=== PATIENT | female | born 1960 ===

== ENCOUNTER 2016-10-12 12:45 | Emergency (ER) | payer OTHER ==
[2016-10-12 13:01] VITALS: BP 117/75; PULSE 74; RESP 17; TEMP 98.4; O2SAT 96; BMI 31.4
--- NOTE | 2016-10-12 13:07 | C.PDOC ---
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 Adds that she went to see her pmd to get a tetanus shot, but her pmd had run out prompting ER visit. Denies any pain, redness, swelling, discharge, decrease in ROM. Has no other complaints. Time Seen by Provider: 10/12/16 12:59 Chief Complaint (Nursing): Abnormal Skin Integrity History Per: Patient History/Exam Limitations: no limitations Current Symptoms Are (Timing): Gone Location Of Injury: Right: Hand (R 5th digit) Severity: None Pain Scale Rating Of: 0 Past Medical History Vital Signs: Last Vital Signs Temp 98.4 F 10/12/16 12:55 Pulse 74 10/12/16 12:55 Resp 17 10/12/16 12:55 BP 117/75 10/12/16 12:55 Pulse Ox 96 10/12/16 13:08 - Medical History PMH: Asthma Surgical History: No Surg Hx Family History: States: No Known Family Hx Review Of Systems Constitutional: Negative for: Fever, Chills, Sweats, Weakness Musculoskeletal: Negative for: Neck Pain, Arm Pain, Back Pain Skin: Positive for: Other (laceration to the R 5th digit). Negative for: Rash, Lesions Physical Exam - Physical Exam Appears: Well, Non-toxic, No Acute Distress Skin: Normal Color, Warm, Dry, No Rash Extremity: Normal ROM, No Tenderness, No Deformity, No Swelling, Other (+ healing 1 cm V shaped laceration to the distal tip of the R 5th digit with no erythema, no edema, no discharge, distal sensation intact, normal cap refill) Extremity: Bilateral: Normal Color And Temperature, Normal ROM Pulses: Right Radial: Normal ED Course And Treatment O2 Sat by Pulse Oximetry: 96 Medical Decision Making Medical Decision Makin yo F presents to the ER for wound check to the R 5th digit and needs a tetanus shot. On exam, well healing laceration with no signs of infection. TDap IM given. Clean dressing applied. Advised to f/u with pmd. Return to the ER at any time for any new or worsening symptoms. 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
[2016-10-12] MEDS ORDERED: Bacitracin 500 Units/gm Oint Foilpak UD ONE (13:14)
== END 2016-10-12 13:20 | disposition home or self-care (01) ==
LOC: C.ER 12:45
DX: Z23 Encounter for immunization (principal)

== ENCOUNTER 2017-03-15 10:18 | Emergency (ER) | payer OTHER ==
[2017-03-15 10:19] VITALS: BMI 31.4
[2017-03-15 10:38] VITALS: O2SAT 97
--- NOTE | 2017-03-15 12:03 | C.PDOC ---
History Of Present Illness 57 year old female presents to the ED for evaluation of right wrist, right knee , and lower back pain after she fell approx 1 week ago. Patient states she was in [place] when she fell forward onto her outstretched right hand and knee. Patient denies head injury/LOC, neck pain, visual change, dizziness, nausea, vomiting, extremity weakness, sensory changes. Time Seen by Provider: 03/15/17 10:41 Chief Complaint (Nursing): Lower Extremity Problem/Injury History Per: Patient History/Exam Limitations: no limitations Onset/Duration Of Symptoms: Days (1 week ) Current Symptoms Are (Timing): Still Present Additional History Per: Patient - Knee Description Of Injury: Fell Past Medical History Reviewed: Historical Data, Nursing Documentation, Vital Signs Vital Signs: Last Vital Signs Temp 97.9 F 03/15/17 12:40 Pulse 67 03/15/17 12:40 Resp 20 03/15/17 12:40 BP 102/70 03/15/17 12:40 Pulse Ox 97 03/15/17 18:53 - Medical History PMH: Asthma, Gastritis Surgical History: No Surg Hx Family History: States: No Known Family Hx - Social History Hx Alcohol Use: No Hx Substance Use: No - Immunization History Hx Tetanus Toxoid Vaccination: No Hx Influenza Vaccination: No Review Of Systems Except As Marked, All Systems Reviewed And Found Negative. Eyes: Negative for: Vision Change Cardiovascular: Negative for: Chest Pain Respiratory: Negative for: Shortness of Breath Gastrointestinal: Negative for: Nausea, Vomiting, Abdominal Pain Musculoskeletal: Positive for: Back Pain (lower ), Other (right wrist, right knee pain ) Neurological: Negative for: Weakness, Numbness, Altered Mental Status, Headache , Dizziness, Other (head injury/LOC ) Physical Exam - Physical Exam Appears: Well, Non-toxic, No Acute Distress Skin: Warm, Dry, Ecchymosis (right knee ) Head: Atraumatic, Normacephalic, No Swelling, No Abrasion, No Laceration Eye(s): bilateral: Normal Inspection, PERRL, EOMI Oral Mucosa: Moist Neck: Normal, Normal ROM, No Midline Cervical Tenderness, No Paracervical Tenderness, No Step Off Deformity, Supple Chest: Symmetrical, No Deformity, No Tenderness Cardiovascular: Rhythm Regular, No Murmur Respiratory: Normal Breath Sounds, No Rales, No Rhonchi, No Wheezing Gastrointestinal/Abdominal: Normal Exam, Bowel Sounds, Soft, No Tenderness Back: No CVA Tenderness, Vertebral Tenderness (lumbar ), No Paraspinal Tenderness Extremity: Normal ROM, Tenderness (mild TTP at tight wrist and right knee, diffuse, without erythema/deformity or swelling ), Capillary Refill (< 2 sec all digits ), No Deformity, No Swelling Pulses: Right Radial: Normal Neurological/Psych: Oriented x3, Normal Speech, Normal Cognition, Normal Cranial Nerves, No Cerebellar Signs, Normal Motor, Normal Sensation Gait: Steady ED Course And Treatment O2 Sat by Pulse Oximetry: 97 (on RA) Pulse Ox Interpretation: Normal - Other Rad right wrist XR X-Ray: Interpreted by Me, Viewed By Me, Read By Radiologist Interpretation: PROCEDURE: Right Wrist Radiographs. . HISTORY: right wrist pain after fall. COMPARISON: None. FINDINGS: BONES: No acute fracture or destructive bony lesion identified. JOINTS: Normal. No dislocation. SOFT TISSUES: Normal. OTHER FINDINGS: None. IMPRESSION: Unremarkable right wrist radiographs. lumbar spine XR X-Ray: Interpreted by Me, Viewed By Me, Read By Radiologist Interpretation: PROCEDURE: Radiographs of the Lumbar Spine. HISTORY: low back pain after fall. COMPARISON: No prior. FINDINGS: BONES: Normal alignment. No listhesis. No fracture. DISC SPACES: Mild disc height loss at L5 -S1 indicates limited degenerative disease. Limited spondylosis appreciate the inferior thoracic spine as well as the thoracolumbar junction. OTHER FINDINGS: None. IMPRESSION: Limited degenerative disease. No fracture or spondylolisthesis identified. knee XR X-Ray: Interpreted by Me, Viewed By Me, Read By Radiologist Interpretation: PROCEDURE: Right Knee Radiographs. HISTORY: right knee pain after fall. COMPARISON: None. FINDINGS: BONES: No acute fracture or destructive bony lesion identified. JOINTS: Limited joint space narrowing seen the medial femorotibial compartment. No subluxation or dislocation. JOINT EFFUSION: None. OTHER FINDINGS: None. IMPRESSION: Limited degenerative joint change. No fracture or dislocation identified. Progress Note: Xrays of right wrist, knee and LS spine ordered and reviewed. Patient given toradol IM for pain. Right wrist cock-up splint applied by supervisor crack off and checked by me. Patient tolerated well. Reevaluation Time: 12:20 Reassessment Condition: Improved (Patient reassesed, is resting comfortably, in no pain/distress. Xrays (-) for acute fractures/bony injury. Patient given Rxs for naprosyn and flexeril, and was instructed to follow up with orthopedics within 1 week. She understands she should return to ED if symptoms worsen.) Disposition Counseled Patient/Family Regarding: Studies Performed, Diagnosis, Need For Followup, Rx Given - Disposition Referrals: [facility] [Outside] [facility] [place] [Outside] Cory Penny III, MD [Staff Provider] - Disposition: HOME/ ROUTINE Disposition Time: 12:20 Condition: STABLE Additional Instructions: FOLLOW UP WITH ORTHOPEDICS WITHIN 1 WEEK USE MEDICATIONS NEEDED RETURN TO ER IF SYMPTOMS WORSEN Prescriptions: Cyclobenzaprine [Cyclobenzaprine HCl] 10 mg PO BID PRN #15 tab PRN Reason: Muscle Spasm Naproxen 375 mg PO BID PRN #20 tablet PRN Reason: pain Instructions: Knee Sprain (ED), Back Pain (ED), Wrist Sprain (ED) Forms: [employer] (Kazakh) Print Language: FRISIAN - POA Present On Arrival: Falls Or Trauma - Clinical Impression Clinical Impression: Right wrist sprain, Right knee sprain, Lumbar sprain - Scribe Statement The provider has reviewed the documentation as recorded by the Scribe (Kimberly Ortega) Provider Attestation: All medical record entries made by the Scribe were at my direction and personally dictated by me. I have reviewed the chart and agree that the record accurately reflects my personal performance of the history, physical exam, medical decision making, and the department course for this patient. I have also personally directed, reviewed, and agree with the discharge instructions and disposition.
[2017-03-15 12:47] VITALS: BP 102/70; PULSE 67; RESP 20; TEMP 97.9
--- NOTE | 2017-03-15 16:39 | RAD ---
PROCEDURE: Radiographs of the Lumbar Spine. HISTORY: low back pain after fall COMPARISON: No prior. FINDINGS: BONES: Normal alignment. No listhesis. No fracture. DISC SPACES: Mild disc height loss at L5-S1 indicates limited degenerative disease. Limited spondylosis appreciate the inferior thoracic spine as well as the thoracolumbar junction. OTHER FINDINGS: None. IMPRESSION: Limited degenerative disease. No fracture or spondylolisthesis identified.
--- NOTE | 2017-03-15 16:40 | RAD ---
PROCEDURE: Right Knee Radiographs. HISTORY: right knee pain after fall COMPARISON: None. FINDINGS: BONES: No acute fracture or destructive bony lesion identified. JOINTS: Limited joint space narrowing seen the medial femorotibial compartment. No subluxation or dislocation. JOINT EFFUSION: None. OTHER FINDINGS: None. IMPRESSION: Limited degenerative joint change. No fracture or dislocation identified.
--- NOTE | 2017-03-15 17:02 | RAD ---
PROCEDURE: Right Wrist Radiographs. HISTORY: right wrist pain after fall COMPARISON: None. FINDINGS: BONES: No acute fracture or destructive bony lesion identified. JOINTS: Normal. No dislocation. SOFT TISSUES: Normal. OTHER FINDINGS: None. IMPRESSION: Unremarkable right wrist radiographs.
== END 2017-03-15 12:42 | disposition home or self-care (01) ==
LOC: C.ER 10:18
DX: S33.5XXA Sprain of ligaments of lumbar spine, initial encounter (principal); S63.501A Unspecified sprain of right wrist, initial encounter; S83.91XA Sprain of unspecified site of right knee, initial encounter; W19.XXXA Unspecified fall, initial encounter
CPT/HCPCS: 72100; 73110; 73562; 96372; 99284; J1885